=== PATIENT | female | born 1950 | race Caucasian/White ===

== ENCOUNTER 2018-02-20 10:33 | Observation (INO) | payer MEDICARE, OTHER ==
[~2018-02-20 10:33] MED LIST: LIDOCAINE 1% PF 2 ML VIAL. ID; ONDANSETRON PF 4 MG/2 ML VIAL. IV; fentaNYL PF VIAL 100 MCG/2 ML VIAL IV
[2018-02-20] MEDS ORDERED: ONDANSETRON PF 4 MG/2 ML VIAL. (11:16)
[2018-02-20] MEDS ORDERED: FAMOTIDINE 20 MG/2 ML VIAL (11:16)
[2018-02-20] MEDS ORDERED: ROCURONIUM 50 MG/5 ML VIAL. (11:16)
[2018-02-20] MEDS ORDERED: DEXAMETHASONE SOD PHOS 20 MG/5 ML VIAL. (11:16)
[2018-02-20] MEDS ORDERED: PROPOFOL 20 ML IV (11:16)
[2018-02-20] MEDS ORDERED: LIDOCAINE 2% PF Vial for OR 5 ML VIAL. (11:16)
[2018-02-20] MEDS ORDERED: MIDAZOLAM HCL/PF 2 MG/2 ML VIAL. (11:17)
[2018-02-20] MEDS ORDERED: fentaNYL PF VIAL 100 MCG/2 ML VIAL (11:17)
[2018-02-20] MEDS ORDERED: REMIFENTANIL 1 MG VIAL. IV (11:23)
[2018-02-20] MEDS: IV RINGERS,LACTATED 1000ML 1,000 ML IV ×2 (11:36→15:04)
[2018-02-20] MEDS: LIDOCAINE 1%/EPI 1:100,000 20 ML VIAL. (12:02)
[2018-02-20] MEDS: EPINEPHrine 1 MG/ML VIAL INJ (12:03)
[2018-02-20] MEDS ORDERED: CLINDAMYCIN 900MG PREMIX 50 ML IV (12:48)
[2018-02-20] MEDS ORDERED: ePHEDrine PF IN SALINE 50 MG/5 ML DISP.SYRIN IV (13:41)
[2018-02-20] MEDS ORDERED: BACITRACIN TOPICAL OINT 14GM TUBE. TP (13:44)
[2018-02-20] MEDS ORDERED: GLYCOPYRROLATE 1 MG/5 ML VIAL. (13:50)
[2018-02-20] MEDS ORDERED: NEOMY/BACITR/POLYMYXIN OINT PACKET. TP (13:58)
[2018-02-20] MEDS ORDERED: SEVOFLURANE 61 TO 120 MINUTES. IH (14:43)
[2018-02-20] MEDS: PROCHLORPERAZINE 10 MG/2 ML VIAL. IV (15:11)
[2018-02-20] MEDS: MORPHINE SULFATE 4 MG/ML DISP.SYRIN. IV ×3 (15:12→16:09)
[2018-02-20] MEDS ORDERED: ACETAMINOPHEN 325 MG TABLET. PO (15:30)
[2018-02-20] MEDS ORDERED: ONDANSETRON PF 4 MG/2 ML VIAL. IV (15:30)
[2018-02-20] MEDS ORDERED: 0.9 % SODIUM CHLORIDE 10 ML DISP.SYRIN. IV (15:30)
[2018-02-20] MEDS ORDERED: MORPHINE SULFATE 4 MG/ML DISP.SYRIN. IV (15:30)
[2018-02-20] MEDS: oxyCODONE/APAP 5/325 1 TAB TABLET PO (18:49)
[2018-02-20] MEDS: DOCUSATE SODIUM 100 MG CAPSULE. PO (21:26)
[2018-02-20] MEDS: ATORVASTATIN CALCIUM 40 MG TABLET. PO (21:26)
[2018-02-20] MEDS: traZODone 50 MG TABLET. PO (21:26)
[2018-02-20] MEDS: GABAPENTIN 300 MG CAPSULE. PO (21:26)
[2018-02-21] MEDS: oxyCODONE/APAP 5/325 1 TAB TABLET PO ×2 (01:35→08:15)
[2018-02-21] MEDS: DESVENLAFAXINE 25 MG TAB.ER.24H PO (08:09)
[2018-02-21] MEDS: ENOXAPARIN 40 MG/0.4 ML SYRINGE. SQ (08:13)
[2018-02-21] MEDS: CHOLECALCIFEROL (VITAMIN D3) 1,000 UNIT TABLET PO (08:13)
[2018-02-21] MEDS: FOLIC ACID 1 MG TABLET. PO (08:14)
[2018-02-21] MEDS: GABAPENTIN 300 MG CAPSULE. PO (08:14)
[2018-02-21] MEDS: METOPROLOL TART IMMED RELEASE 50 MG TABLET. PO (08:14)
[2018-02-21] MEDS: DOCUSATE SODIUM 100 MG CAPSULE. PO (08:14)
[2018-02-21 10:50] LABS: GFR 45.1
[2018-02-21 10:50] LABS: CREATININE 1.2 mg/dL (0.6-1.0)
[2018-02-21 10:59] LABS: PLATELET COUNT 194 x10^3/uL (140-400)
== END 2018-02-21 11:33 | disposition home or self-care (01) ==
LOC: SURG 10:33 → 4 NORTH 02-21 10:56
PROVIDERS: Otolaryngology
DX: R22.1 Localized swelling, mass and lump, neck (principal)
CPT/HCPCS: 11423; 36415; 82565; 85049; 96372; A7015; G0378; G0379; J0171; J0780; J1100; J1650; J2250; J2270; J2405; J2704; J3010; J3490; J7120; S0028